=== PATIENT | male | born 1985 | race Caucasian/White ===

== ENCOUNTER 2018-01-06 11:52 | Emergency (ER) | END 2018-01-06 16:10 | disposition home or self-care (01) ==

== ENCOUNTER 2018-01-08 12:50 | Emergency (ER) | END 2018-01-08 15:27 | disposition left against medical advice (07) ==

== ENCOUNTER 2018-01-22 20:00 | Emergency (ER) | END 2018-01-23 00:30 | disposition home or self-care (01) ==